=== PATIENT | female | born 1990 | race Caucasian/White ===

== ENCOUNTER 2020-04-22 23:08 | Emergency (ER) | payer OTHER ==
[2020-04-22 23:28] VITALS: TEMP 97.8; BMI 29.0
--- OUTSIDE RECORDS SUMMARY | 2020-04-22 23:28 | XMS ---
:1990 Author Organization [facility] Support Name Relationship Address Phone UE Unavailable Unavailable Unavailable RUDDY MOLINA PARTNER [address] [facility] [place] [address] Re-disclosure Warning The records that you are about to access may contain information from federally- assisted alcohol or drug abuse programs. If such information is present, then the following federally mandated warning applies: This information has been disclosed to you from records protected by federal confidentiality rules (42 CFR part 2). The federal rules prohibit you from making any further disclosure of this information unless further disclosure is expressly permitted by the written consent of the person to whom it pertains or as otherwise permitted by 42 CFR part 2. A general authorization for the release of medical or other information is NOT sufficient for this purpose. The Federal rules restrict any use of the information to criminally investigate or prosecute any alcohol or drug abuse patient.The records that you are about to access may contain highly sensitive health information, the redisclosure of which is protected by Article 27-F of the [facility] Public Health law. If you continue you may haveaccess to information: Regarding HIV / AIDS; Provided by facilities licensed or operated by the [facility] Office of Mental Health; or Provided by the [facility] Office for People With Developmental Disabilities. If such information is present, then the following [facility] mandated warning applies: This information has been disclosed to you from confidential records which are protected by state law. State law prohibits you from making any further disclosure of this information without the specific written consent of the person to whom it pertains, or as otherwise permitted by law. Any unauthorized further disclosure in violation of state law may result in a fine or detention sentence or both. A general authorization for the release of medical or other information is NOT sufficient authorization for further disclosure. Insurance Providers Payer name Policy type Policy ID Covered Covered democrat's Policy P ernie / Coverage democrat ID relationship to [facility] ormation type [facility]ly [facility] [id number] FIRST
--- NOTE | 2020-04-22 23:30 | PDOC ---
History of Present Illness - General Chief Complaint: Lightheaded Stated Complaint: ALLERGIC REACTION Time Seen by Provider: 04/22/20 23:29 - History of Present Illness Initial Comments: 29 YOF no significant history presenting for uticaria and anxiety since 4 days. Patient reports she has been noticing hives on her arms, torso and buttocks over the past week. She reports that these hives itch, she has tried to use benadryl and calamine lotion with no relief. She has also had bouts of intense anxiety over the past 4 days. She additionally reports episodes of nausea, diarrhea, and vomiting. She curently has a headache. She has not taken anything for this. She reports that she occasionally smokes marijuana but has not smoked today. Otherwise denies etoh, additional recreational drugs or smoking, She otherwise denies chest pain, shortness of breath, fever. She does experience intermittent chills. Constitutional: No Weight Change, No Fever, + Chills, No Night Sweats, No Fatigue, No Malaise ENT/Mouth: No Hearing Changes, No Ear Pain, No Nasal Congestion, No Sinus Pain, No Hoarseness, No sore throat, No Rhinorrhea, No Swallowing Difficulty Eyes: No Eye Pain, No Swelling, No Redness, No Foreign Body, No Discharge, No Vision Changes Cardiovascular: No Chest Pain, No SOB, No PND, No Dyspnea on Exertion, No Orthopnea, No Claudication, No Edema, No Palpitations Respiratory: No Cough, No Sputum, No Wheezing, No Smoke Exposure, No Dyspnea Gastrointestinal: + Nausea, + Vomiting, + Diarrhea, No Constipation, No Pain, No Heartburn, No Anorexia, No Dysphagia, No Hematochezia, No Melena, No Flatulence, No Jaundice Genitourinary: No Dysmenorrhea, No DUB, No Dyspareunia, No Dysuria, No Urinary Frequency, No Hematuria, No Urinary Incontinence, No Urgency, No Flank Pain, No Urinary Flow Changes, No Hesitancy Musculoskeletal: No Arthralgias, No Myalgias, No Joint Swelling, No Joint Stiffness, No Back Pain, No Neck Pain, No Injury History Skin: + Skin Lesions, + Pruritis, No Hair Changes, No Breast/Skin Changes, No Nipple Discharge Neuro: No Weakness, No Numbness, No Paresthesias, No Loss of Consciousness, No Syncope, No Dizziness, No Headache, No Coordination Changes, No Recent Falls Psych: No Anxiety/Panic, No Depression, No Insomnia, No Personality Changes, No Delusions, No Rumination, No SI/HI/AH/VH, No Social Issues, No Memory Changes, No Violence/Abuse Hx., No Eating Concerns Heme/Lymph: No Bruising, No Bleeding, No Transfusions History, No Lymphadenopathy Endocrine: No Polyuria, No Polydipsia, No Temperature Intolerance Past History - Medical History Allergies/Adverse Reactions: Allergies Allergy/AdvReac Type Severity Reaction Status Date / Time No Known Allergies Allergy Verified 04/22/20 23:18 CVA: No COPD: No Disorders: Yes (ovarian cysts) - Reproductive History Is Patient Now?: No - Psycho-Social/Smoking History Smoking History: Never smoked - Substance Abuse Hx (Audit-C & DAST Scrn) How often the patient has a drink containing alcohol: Never Score: In Men: 4 or > Positive; In Women: 3 or > Positive: 0 Screen Result (Pos requires Nsg. Audit-10AR): Negative *Physical Exam - Vital Signs Last Vital Signs Temp Pulse Resp BP Pulse Ox 97.8 F 77 20 145/82 97 04/22/20 23:19 04/22/20 23:19 04/22/20 23:19 04/22/20 23:19 04/22/20 23:19 ED Treatment Course - LABORATORY CBC & Chemistry Diagram: 04/23/20 01:03 04/23/20 00:24 Discharge - Discharge Information Problems reviewed: Yes Clinical Impression/Diagnosis: Allergies Condition: Good Disposition: HOME - Admission No - Follow up/Referral - Patient Discharge Instructions Additional Instructions: You were seen in the emergency department for hives, a headache, and bouts of anxiety, nausea, vomiting, and diarrhea. You received labs and medication for your symptoms. Your labs were unremarkable and you reported that the medication relieved your headache and anxiety. If you continue to have hives at home you may use benadryl to control your symptoms. Please follow the dosing instructions on the package. To treat your headaches you may use tylenol or advil, again please follow the dosing instructions on the packaging for this medication. Please follow up with your primary care physician for your appointment this and tell her about your visit to the ER and your symptoms. Please return to the ER if you experience any of the following: continuous vomiting where you are unable to keep down liquids, fever, chest pain, shortness of breath, swelling of your neck or throat, difficulty breathing or speaking, blurry vision, passing out. - Post Discharge Activity
[2020-04-22] MEDS ORDERED: LORazepam 1 MG TABLET PO ONE (23:51)
[2020-04-22] MEDS ORDERED: LORazepam 1 MG TABLET ONE (23:53)
[2020-04-23] MEDS ORDERED: ACETAMINOPHEN 500 MG TABLET (FP) PO ONE (00:12)
[2020-04-23] MEDS ORDERED: ONDANSETRON *ODT* 4 MG TABLET SL ONE (00:26)
[2020-04-23] MEDS ORDERED: ONDANSETRON *ODT* 4 MG TABLET ONE (00:44)
[2020-04-23] MEDS ORDERED: ACETAMINOPHEN 325 MG TABLET (FP) ONE (00:44)
[2020-04-23] MEDS ORDERED: ACETAMINOPHEN INJECTION 100 ML IVPB ONE (00:49)
[2020-04-23] MEDS ORDERED: ACETAMINOPHEN 1000 MG/100 ML VIAL (NON FORMULARY) IVPB ONE (01:06)
[2020-04-23 01:23] LABS: BASO % 0.3 % (0-2.0); EOS % 0.8 % (0-4.5); HEMOGLOBIN 13.2 GM/dL (10.7-15.3); LYMPH % 15.5 % (8-40); MCH 30.2 pg (25.7-33.7); MEAN CELL VOLUME 91.7 fl (80-96); MEAN PLT VOLUME 8.2 fl (7.5-11.1); MONO % 3.7 % (3.8-10.2); NEUT % 79.7 % (42.8-82.8); PLATELET COUNT 354 K/MM3 (134-434); RBC 4.36 M/mm3 (3.60-5.2); RDW 13.2 % (11.6-15.6); WHITE BLOOD COUNT 11.9 K/mm3 (4.0-10.0)
[2020-04-23 01:37] LABS: ALBUMIN 3.8 g/dl (3.4-5.0); BILIRUBIN,TOTAL 0.6 mg/dL (0.2-1); BLOOD UREA NITROGEN 12.6 mg/dL (7-18); CREATININE 0.7 mg/dL (0.55-1.3); POTASSIUM 3.5 mmol/L (3.5-5.1); TOT PROT 7.1 g/dl (6.4-8.2)
[2020-04-23] MEDS ORDERED: DEXAMETHASONE LIQUID 0.5 MG/5 ML PO ONE (02:11)
--- NOTE | 2020-04-23 02:18 | PDOC ---
Documentation entered by Raphael De Anda SCRIBE, acting as scribe for Twyla Collins MD. Twyla Collins MD: This documentation has been prepared by the scribe, Raphael De Anda SCRIBE, under my direction and personally reviewed by me in its entirety. I confirm that the documentation accurately reflects all work, treatment, procedures, and medical decision making performed by me. Attending Attestation - Resident Resident Name: José Delaney - ED Attending Attestation I have performed the following: I have examined & evaluated the patient, The case was reviewed & discussed with the resident, I agree w/resident's findings & plan, Exceptions are as noted - HPI HPI: 04/23/20 02:17 Pt is allergic most likely to her hair coloring. She last colored her hair on Th and the itchiness has been worse since then. - Physicial Exam PE: 04/22/20 23:32 GENERAL: Well developed, well nourished. Awake and alert. No acute distress. HEENT: Normocephalic, atraumatic. PERRLA, EOMI. No conjunctival pallor. Sclera are non- icteric. Moist mucous membranes. Oropharynx is clear. NECK: Supple. Full ROM. No JVD. Carotid pulses 2+ and symmetric, without bruits. No thyromegaly. No lymphadenopathy. CARDIOVASCULAR: Regular rate and rhythm. No murmurs, rubs, or gallops. Distal pulses are 2+ and symmetric. PULMONARY: No evidence of respiratory distress. Lungs clear to auscultation bilaterally. No wheezing, rales or rhonchi. ABDOMINAL: Soft. Non-tender. Non-distended. No rebound or guarding. No organomegaly. Normoactive bowel sounds. MUSCULOSKELETAL: Normal range of motion at all joints. No bony deformities or tenderness. No CVA tenderness. EXTREMITIES: No cyanosis. No clubbing. No edema. No calf tenderness. SKIN: Warm and dry. Normal capillary refill. HIVES on face and back and trunk, currently. No jaundice. NEUROLOGICAL: Alert, awake, appropriate. Cranial nerves 2-12 intact. No deficits to light touch and temperature in face, upper extremities and lower extremities. No motor deficits in the in face, upper extremities and lower extremities. Normoreflexic in the upper and lower extremities. Normal speech. Toes are down-going bilaterally. Gait is normal without ataxia. PSYCHIATRIC: Cooperative. Good eye contact. Appropriate mood and affect. - Medical Decision Making 04/23/20 02:17 Pt will be treated with decadron here and she will get 2 doses of decadron to go. She has OTC benadryl and she has an appt with her doc on . 04/23/20 04:44 Stable for d/c home Discharge - Discharge Information Problems reviewed: Yes Clinical Impression/Diagnosis: Allergies Condition: Good Disposition: HOME - Additional Discharge Information Prescriptions: Dexamethasone [Decadron] 6 mg PO ONCE #2 tablet - Follow up/Referral - Patient Discharge Instructions Additional Instructions: You were seen in the emergency department for hives, a headache, and bouts of anxiety, nausea, vomiting, and diarrhea. You received labs and medication for your symptoms. Your labs were unremarkable and you reported that the medication relieved your headache and anxiety. If you continue to have hives at home you may use benadryl to control your symptoms. Please follow the dosing instructions on the package. To treat your headaches you may use tylenol or advil, again please follow the dosing instructions on the packaging for this medication. Please follow up with your primary care physician for your appointment this and tell her about your visit to the ER and your symptoms. Please return to the ER if you experience any of the following: continuous vomiting where you are unable to keep down liquids, fever, chest pain, shortness of breath, swelling of your neck or throat, difficulty breathing or speaking, blurry vision, passing out. - Post Discharge Activity
[2020-04-23] MEDS ORDERED: DEXAMETHASONE SOD PHOSPHATE 10 MG/1 ML VIAL ONE (02:22)
[2020-04-23 02:33] VITALS: BP 138/75; PULSE 82
== END 2020-04-23 02:33 | disposition home or self-care (01) ==
LOC: JER 23:08
PROC: 3E033NZ Introduction of Analgesics, Hypnotics, Sedatives into Peripheral Vein, Percutaneous Approach (ICD-10-PCS; principal; 2020-04-22)
DX: J30.2 Other seasonal allergic rhinitis (principal)
CPT/HCPCS: 36415; 80053; 83690; 84703; 85025; 99285-25; J0131; Q0162